=== PATIENT | female | born 1995 | race Two or more races ===

== ENCOUNTER 2017-07-31 15:39 | Inpatient (IN) | payer OTHER, MEDICAID ==
[~2017-07-31] VITALS: Ht 160 cm; Wt 66.4 kg
[2017-07-31 16:07] LABS: MEAN CORPUSCULAR HEMOGLOBIN 33.4 pg (27.0-34.8); MEAN CORPUSCULAR HGB CONC 34.8 g/dL (32.4-35.8); MEAN CORPUSCULAR VOLUME 96.1 fL (80-100); MEAN PLATELET VOLUME 9.4 fL (7.4-10.4); PLATELET COUNT 233 x10^3/uL (130-400); RED BLOOD COUNT 4.56 x10^6/uL (3.82-5.3); RED CELL DISTRIBUTION WIDTH 14.2 % (9.6-15.2)
[2017-07-31 16:14] LABS: ALANINE AMINOTRANSFERASE 58 U/L (12-78); ALBUMIN 3.5 g/dL (3.4-5.0); ANION GAP 13 mmol/L (5-15); CALCIUM 9.5 mg/dL (8.5-10.1); CHLORIDE 104 mmol/L (98-107); CREATININE 0.77 mg/dL (0.55-1.02)
[2017-07-31 16:17] LABS: ALKALINE PHOSPHATASE 108 U/L (45-117); BILIRUBIN,TOTAL 0.9 mg/dL (0.2-1.0); TOTAL PROTEIN 8.5 g/dL (6.4-8.2)
[2017-07-31 16:17] LABS: MICROSCOPIC INDICATED
[2017-07-31 16:26] LABS: BASOPHILS # (AUTO) 0.08 x10^3/uL (0-0.1); BASOPHILS % (AUTO) 0 % (0-1); EOSINOPHILS # (AUTO) 0.06 x10^3/uL (0-0.4); EOSINOPHILS % (AUTO) 0 % (1-7); LYMPHOCYTES # (AUTO) 1.17 x10^3/uL (1-3.4); LYMPHOCYTES % (AUTO) 7 % (22-44); MD SCAN; MONOCYTES # (AUTO) 0.66 x10^3/uL (0.2-0.8); MONOCYTES % (AUTO) 4 % (2-9); NEUTROPHILS # (AUTO) 16.15 x10^3/uL (1.8-6.8); NEUTROPHILS % (AUTO) 89 % (42-75)
[2017-07-31 16:26] LABS: AMPHETAMINE SCREEN, URINE Negative (Negative); BARBITURATE SCREEN, URINE Negative (Negative); BENZODIAZEPINE SCREEN, URINE Negative (Negative); CANNABINOID SCREEN, URINE Negative (Negative); COCAINE SCREEN, URINE Negative (Negative); METHADONE SCREEN, URINE Negative (Negative); OPIATE SCREEN, URINE Negative (Negative)
[2017-07-31 16:27] LABS: CULTURE INDICATED? NO
[2017-07-31] MEDS ORDERED: MEPERIDINE/PF 100 MG/ML ONE (17:27)
[2017-07-31] MEDS ORDERED: ONDANSETRON 2MG/ML, 2ML IVPush PRN (17:30)
[2017-07-31] MEDS ORDERED: LACTATED RINGERS 1,000 ML IVBOLUS ONE (17:30)
[2017-07-31] MEDS ORDERED: MEPERIDINE/PF 25MG/0.5ML IVPush PRN (17:30)
[2017-07-31] MEDS: CEFOTETAN PMX 2GM/50ML 50 ML IV SCH (18:56)
[2017-07-31] MEDS: LACTATED RINGERS 1,000 ML IV SCH (19:01)
[2017-07-31 20:00] VITALS: BP 116/63
[2017-07-31] MEDS ORDERED: METOCLOPRAMIDE 5 MG/ML, 2ML IVPush PRN (20:00)
[2017-07-31] MEDS ORDERED: morphine SULFATE 10 MG/ML, 1ML IVPush PRN (20:00)
[2017-08-01] MEDS: LACTATED RINGERS 1,000 ML IV SCH (04:27)
[2017-08-01 05:30] VITALS: BP 96/54
[2017-08-01] MEDS: CEFOTETAN PMX 2GM/50ML 50 ML IV SCH (05:34)
[2017-08-01 06:06] LABS: BASOPHILS # (AUTO) 0.03 x10^3/uL (0-0.1); BASOPHILS % (AUTO) 0 % (0-1); EOSINOPHILS # (AUTO) 0.09 x10^3/uL (0-0.4); EOSINOPHILS % (AUTO) 1 % (1-7); LYMPHOCYTES # (AUTO) 1.43 x10^3/uL (1-3.4); LYMPHOCYTES % (AUTO) 15 % (22-44); MD NO; MEAN CORPUSCULAR HGB CONC 33.3 g/dL (32.4-35.8); MEAN PLATELET VOLUME 8.6 fL (7.4-10.4); MONOCYTES # (AUTO) 0.61 x10^3/uL (0.2-0.8); MONOCYTES % (AUTO) 6 % (2-9); NEUTROPHILS % (AUTO) 78 % (42-75); PLATELET COUNT 191 x10^3/uL (130-400); RED BLOOD COUNT 3.52 x10^6/uL (3.82-5.3); RED CELL DISTRIBUTION WIDTH 14.4 % (9.6-15.2)
[2017-08-01] MEDS ORDERED: EPINEPHRINE 1 MG/ML, 1ML ONE (06:24)
[2017-08-01] MEDS ORDERED: BUPIVACAINE/PF 0.25% ONE (06:24)
[2017-08-01] MEDS ORDERED: OXYcodone IR 5MG TABLET ONE (06:56)
[2017-08-01] MEDS ORDERED: ACETAMINOPHEN 500 MG TABLET ONE (06:57)
[2017-08-01] MEDS ORDERED: OXYcodone IR 5MG TABLET PO ONE (07:00)
[2017-08-01] MEDS ORDERED: ONDANSETRON 2MG/ML, 2ML IVPush ONE (07:00)
[2017-08-01] MEDS ORDERED: ACETAMINOPHEN 500 MG TABLET PO ONE (07:00)
[2017-08-01] MEDS ORDERED: FENTANYL PF 100 MCG/2ML ONE ×4 (07:08→08:23)
[2017-08-01] MEDS ORDERED: ROCURONIUM 10 MG/ML,10ML ONE (07:10)
[2017-08-01] MEDS ORDERED: GLYCOPYRROLATE 0.2MG/1ML, 5ML ONE (07:40)
[2017-08-01] MEDS ORDERED: SUCCINYLCHOLINE 20 MG/ML, 10ML ONE (07:40)
[2017-08-01] MEDS ORDERED: NEOSTIGMINE 1 MG/ML, 10ML ONE (07:40)
[2017-08-01] MEDS ORDERED: PROPOFOL 10 MG/ML, 20ML ONE (07:40)
[2017-08-01] MEDS ORDERED: DEXAMETHASONE 4 MG/ML, 1ML ONE (07:40)
[2017-08-01] MEDS ORDERED: ONDANSETRON 2MG/ML, 2ML ONE (07:40)
[2017-08-01] MEDS ORDERED: EPHEDRINE 50 MG/ML, 1ML IVPush PRN (08:00)
[2017-08-01] MEDS ORDERED: HYDROmorphone 1 MG/ML, 1ML IV PRN (08:00)
[2017-08-01] MEDS ORDERED: HYDROcodone/APAP 7.5-325MG/15ML UDC PO PRN (08:00)
[2017-08-01] MEDS ORDERED: OXYcodone 5 MG/5 ML ORAL.SOL UDC PO PRN (08:00)
[2017-08-01] MEDS ORDERED: PROMETHAZINE 25 MG/ML, 1ML IV PRN (08:00)
[2017-08-01] MEDS ORDERED: ALBUTEROL SULFATE 2.5 MG/3 ML NPPB PRN (08:00)
[2017-08-01] MEDS ORDERED: ONDANSETRON ODT 8 MG PO PRN (08:00)
[2017-08-01] MEDS: FENTANYL PF 100 MCG/2ML IV PRN ×3 (08:05→08:20)
[2017-08-01] MEDS ORDERED: MEPERIDINE/PF 25MG/0.5ML ONE (08:19)
[2017-08-01] MEDS ORDERED: MEPERIDINE/PF 25MG/0.5ML IVPush PRN (09:00)
[2017-08-01] MEDS ORDERED: HYDROcodone/APAP 5/325 TABLET ONE ×3 (09:41→23:25)
[2017-08-01] MEDS: HYDROcodone/APAP 5/325 TABLET PO PRN ×4 (09:42→23:26)
[2017-08-01] MEDS ORDERED: HYDROcodone/APAP 5/325 TABLET PO PRN (10:00)
[2017-08-01] MEDS ORDERED: SODIUM CHLORIDE FLUSH 3ML SYRINGE IVF SCH (21:00)
[2017-08-02] MEDS ORDERED: HYDROcodone/APAP 5/325 TABLET ONE ×2 (06:01→10:10)
[2017-08-02] MEDS: HYDROcodone/APAP 5/325 TABLET PO PRN ×2 (06:02→10:12)
[2017-08-02 07:23] VITALS: BP 108/61
== END 2017-08-02 13:20 | disposition home or self-care (01) | DRG 781 ==
LOC: LDOP 15:39 → OBSVTOIN 17:16 → UNDOADMOB 17:16 → INTOOBSV 17:16 → LDIP 17:16 → OBSVTOIN 19:00
PROVIDERS: ADMIT Obstetrics & Gynecology; ATTEND Obstetrics & Gynecology
PROC: 0T9B70Z Drainage of Bladder with Drainage Device, Via Natural or Artificial Opening (ICD-10-PCS; 2017-07-31)
PROC: 0FT44ZZ Resection of Gallbladder, Percutaneous Endoscopic Approach (ICD-10-PCS; principal; 2017-08-01 07:00)
DX: O99.613 Diseases of the digestive system complicating pregnancy, third trimester (principal); K80.00 Calculus of gallbladder with acute cholecystitis without obstruction; L80 Vitiligo; O99.713 Diseases of the skin and subcutaneous tissue complicating pregnancy, third trimester; O26.613 Liver and biliary tract disorders in pregnancy, third trimester; Z3A.28 28 weeks gestation of pregnancy
CPT/HCPCS: 36415; 76700; 80053; 80307; 81001; 85025; 88304; J0171; J1100; J2175; J2405; J2704; J2710; J3010; J3490; J0330; J7120; S0074